=== PATIENT | male | born 1950 | race Caucasian/White ===

== ENCOUNTER 2023-11-16 06:13 | Day surgery (SDC) | payer MEDICARE, SELFPAY ==
[2023-10-31 09:48] VITALS: BMI 23.2
[2023-10-31 11:50] VITALS: BMI 20.9
[2023-11-16 07:30] VITALS: BMI 19.8
[2023-11-16 07:32] VITALS: BP 135/88; PULSE 80; RESP 16; TEMP 36.9; O2SAT 100
--- NOTE | 2023-11-16 07:54 | PM.HPGS ---
History of Present Illness History of Present Illness Consent: Risks, benefits, and alternatives have been discussed and questions answered. Patient agrees to proceed with procedure. Chief complaint: Neoplasm screening Narrative: Edd Hines is a 73 year old male presents for screening colonoscopy. Current weight appetite and bowel movements are normal. Patient denies abdominal pain. He has had no bleeding. Family history noncontributory. He does complain of a sore tail bone. Review of Systems Review of Systems: All systems reviewed & are unremarkable except as noted in HPI and below [facility] Past Medical History Medical History (Updated 11/16/23 @ 07:56 by Pritesh Connors MD) Mixed hyperlipidemia Prediabetes Surgical History Surgical History (Updated 11/09/23 @ 09:11 by Kymberly Carranza CMA) History of hemorrhoidectomy (~1991) History of hernia surgery (~1994) Left inguinal hernia repair Family History Family History Father , age 76 Heart disease Atrial fibrillation Mother , age 67 Breast cancer Osteoporosis Migraine Social History Social History Smoking status: Former smoker Tobacco type: cigarettes Alcohol intake: current Drinks per week: 3 Substance use: current Substance use type: marijuana Last use: 3X weekly Living arrangements: alone Spiritual care concerns: No Meds Home Medications and Allergies Home Medications Medication Instructions Recorded Confirmed Type calcium carb-magnesium oxide-vit C 1 tablet PO DAILY 08/27/20 11/16/23 History 400 mg calcium-117 mg-167 mg tablet multivitamin 1 tablet PO DAILY 08/27/20 11/16/23 History sildenafil 50 mg tablet 50 mg PO DAILY PRN Erectile 08/27/20 11/16/23 History Dysfunction triamcinolone acetonide 0.1 % 1 applic topical QID #80 grams 10/17/20 11/16/23 Rx topical cream Allergies Allergy/AdvReac Type Severity Reaction Status Date / Time tramadol AdvReac Mild Headache Verified 11/16/23 07:18 Vital Signs Vital Signs - 24 hr 11/16/23 07:32 Temperature 98.4 F Pulse Rate 80 Respiratory Rate 16 Blood Pressure 135/88 Pulse Oximetry 100 Oxygen Delivery Room Air Exam Narrative: Physical exam reveals patient to be alert. Vital signs stable. HEENT is unremarkable. Patient is anicteric. Lungs are clear to auscultation and percussion. Heart is without murmur or extra sounds. Abdomen bowel sounds are present soft nontender. Right inguinal hernia. Digital external rectal exam is normal. Assessment and Plan Assessment and plan (1) Encounter for screening colonoscopy: Code(s): Z12.11 - Encounter for screening for malignant neoplasm of colon Status: Acute Assessment and Plan: Patient presents today for screening colonoscopy. Further recommendations may be given after endoscopy. (2) Right inguinal hernia: Code(s): K40.90 - Unilateral inguinal hernia, without obstruction or gangrene, not specified as recurrent Status: Acute Assessment and Plan: His right inguinal hernia. Surgical evaluation is suggested.
--- NOTE | 2023-11-16 07:55 | P.PNAN_ITS ---
Anes - Initial Pre Proc Eval Procedure: Operation Date: 11/16/23 08:30 Proposed Procedures p Screening Colonoscopy - Pritesh Connors MD Date/Time: 11/16/23 07:55 Surgeon: Pritesh Connors MD Pre Op Diagnosis: Neoplasm screening Patient Data Age: 73 Gender: M Height: 1.8 m Weight: 64.7 kg Last Vital Signs Temp 36.9 C 11/16/23 07:32 Pulse 80 11/16/23 07:32 Resp 16 11/16/23 07:32 BP 135/88 11/16/23 07:32 Pulse Ox 100 11/16/23 07:32 O2 Del Method Room Air 11/16/23 07:32 Allergies Allergy/AdvReac Type Severity Reaction Status Date / Time tramadol AdvReac Mild Headache Verified 11/16/23 07:18 Home Medications Medication Instructions Recorded Confirmed Type calcium carb-magnesium oxide-vit C 1 tablet PO DAILY 08/27/20 11/16/23 History 400 mg calcium-117 mg-167 mg tablet multivitamin 1 tablet PO DAILY 08/27/20 11/16/23 History sildenafil 50 mg tablet 50 mg PO DAILY PRN Erectile 08/27/20 11/16/23 History Dysfunction triamcinolone acetonide 0.1 % 1 applic topical QID #80 grams 10/17/20 11/16/23 Rx topical cream Patient hx anesthesia problems: none Family hx anesthesia problems: none Results Review: All pre-operative results and documents have been reviewed as part of the pre- operative evaluation. [facility] Past Medical History Medical History Mixed hyperlipidemia Prediabetes Surgical History Surgical History History of hemorrhoidectomy (~1991) History of hernia surgery (~1994) Left inguinal hernia repair Family History Family History Father , age 76 Heart disease Atrial fibrillation Mother , age 67 Breast cancer Osteoporosis Migraine Social History Social History Smoking status: Former smoker Tobacco type: cigarettes Alcohol intake: current Drinks per week: 3 Substance use: current Substance use type: marijuana Last use: 3X weekly Living arrangements: alone Spiritual care concerns: No Anes - Eval Final PreProcedure Day of Procedure 11/16/23 07:55 Patient weight: thin Heart: regular rate and rhythm Lungs: decreased breath sounds Airway: Mallampati scale class II Neurological: alert and oriented Last oral intake: >/= 8 hours ASA classification: III Emergent: no Anesthetic plan: proceed Anesthesia type and monitoring: general GIVS and standard monitoring Results Review: All pre-operative results and documents have been reviewed as part of the pre- operative evaluation. Informed Consent: The patient's anesthetic plan and its attendant risks and benefits were discussed with the patient/family/POA. Questions were solicited and answers provided to the satisfaction of the patient/family/POA.
[2023-11-16] MEDS: LACTATED RINGERS 1,000 ML 150 ML IV CONT (08:01)
[2023-11-16 08:51] VITALS: BP 97/70; PULSE 60; RESP 16; O2SAT 98
[2023-11-16 09:01] VITALS: BP 106/73; PULSE 55; RESP 14; O2SAT 100
[2023-11-16 09:11] VITALS: BP 110/67; PULSE 58; RESP 14; O2SAT 100
--- NOTE | 2023-11-16 10:07 | WPDANESPN ---
Anes - Prog Note Post-Op Date/Time: 11/16/23 10:07 Cardiovascular status: normal Respiratory status: normal Airway patency: baseline Mental status: baseline Post-Op hydration status: normal Vital Signs: Last Vital Signs Temp 36.9 C 11/16/23 07:32 Pulse 58 L 11/16/23 09:11 Resp 14 11/16/23 09:11 BP 110/67 11/16/23 09:11 Pulse Ox 100 11/16/23 09:11 O2 Del Method Room Air 11/16/23 09:11 Pain Score (VAS): 0 I/O: Intake & Output 11/15/23 11/16/23 11/16/23 23:59 07:59 15:59 Intake Total 900 Balance 900 Patient Feedback: Patient satisfied with anesthetic care.
== END 2023-11-16 09:18 | disposition home or self-care (01) ==
PROVIDERS: PCP Family Medicine; Visit Provider Internal Medicine Gastroenterology
PROC: 0DJD8ZZ Inspection of Lower Intestinal Tract, Via Natural or Artificial Opening Endoscopic (ICD-10-PCS; CPT 45378; principal; 2023-11-16 08:30)
DX: Z12.11 Encounter for screening for malignant neoplasm of colon (principal); K57.30 Diverticulosis of large intestine without perforation or abscess without bleeding; K64.8 Other hemorrhoids
CPT/HCPCS: 45378